=== PATIENT | female | born 1935 | race Caucasian/White ===

== ENCOUNTER → 2019-12-23 10:28 | Outpatient (BNVA) | payer MEDICARE, OTHER, SELFPAY | PROVIDERS: PCP Nurse Practitioner; Referring Provider Nurse Practitioner; Visit Provider Nurse Practitioner | DX: F03.90 Unspecified dementia, unspecified severity, without behavioral disturbance, psychotic disturbance, mood disturbance, and anxiety (principal); R41.3 Other amnesia; R42 Dizziness and giddiness | CPT/HCPCS: 96116; 99204 ==

== ENCOUNTER 2020-01-18 12:07 | Outpatient (CLI) | payer MEDICARE, OTHER, SELFPAY ==
--- NOTE | 2020-01-18 12:45 | USCV_ITS ---
Fatuma Phan Age: 84 Gender: F : 1935 Exam Date: 01/18/2020 12:43 Ordering Phys: Hoa Crane MD ([email or web address]) Technologist: Shivani Fan Exam Location: [facility] [place] Indication: Atrial flutter BP: / HR: 54 Rhythm: Sinus Technical Quality: Adequate MEASUREMENTS (Male / Female) Normal Values 2D ECHO LV Diastolic Diameter PLAX 5.1 cm 4.2 - 5.9 / 3.9 - 5.3 cm LV Systolic Diameter PLAX 3.2 cm IVS Diastolic Thickness 1.1 cm 0.6 - 1.0 / 0.6 - 0.9 cm IVS Systolic Thickness 1.7 cm LVPW Diastolic Thickness 0.9 cm 0.6 - 1.0 / 0.6 - 0.9 cm LVPW Systolic Thickness 1.5 cm LVOT Diameter 2.0 cm LV Ejection Fraction 2D Teich 66.2 % LV Ejection Fraction MOD 2C 76.5 % LV Ejection Fraction 2C AL 77.4 % LA Diameter 3.7 cm LA Width 3.3 cm LA Height 3.9 cm RA Width 2.6 cm RA Height 4.0 cm M-MODE LV Diastolic Diameter MM 5.3 cm 4.2 - 5.9 / 3.9 - 5.3 cm LV Systolic Diameter MM 3.9 cm LV Ejection Fraction MM Teich 50.8 % IVS Diastolic Thickness MM 0.9 cm 0.6 - 1.0 / 0.6 - 0.9 cm IVS Systolic Thickness MM 1.1 cm LVPW Diastolic Thickness MM 1.1 cm 0.6 - 1.0 / 0.6 - 0.9 cm LVPW Systolic Thickness MM 1.8 cm Aortic Annulus Diameter 2.7 cm LA Ao Ratio MM 1.4 MV E Point Septal Separation 1.2 cm DOPPLER AV Peak Velocity 217.0 cm/s LVOT Peak Velocity 148.0 cm/s AV Area Cont Eq vti 2.3 cm squared AV Area Cont Eq pk 2.2 cm squared MV Peak Velocity 147.0 cm/s MV Area PHT 2.5 cm squared Mitral E to A Ratio 0.6 MV E' Velocity 4.0 cm/s Mitral E to MV E' Ratio 18.2 Mitral E to LV E' Lateral Ratio 24.0 Mitral E to LV E' Septal Ratio 14.9 TR Peak Velocity 171.0 cm/s TR Peak Gradient 11.7 mmHg Right Atrial Pressure 3.0 mmHg Pulmonary Artery Systolic Pressu 14.7 mmHg PV Peak Velocity 92.0 cm/s RV Acceleration Time 0.1 s FINDINGS Left Ventricle Normal left ventricular size, systolic function and wall thickness, with no regional wall motion abnormalities. Left ventricular ejection fraction is estimated at 70 %. Grade I diastolic dysfunction (abnormal relaxation filling pattern), normal to mildly elevated filling pressures. Right Ventricle Normal right ventricular size and systolic function. Right ventricular systolic pressure 14.7 mmHg. Right Atrium Normal right atrial size. Right atrial pressure estimated at 3 mmHg. Left Atrium Mildly increased left atrial size. Mitral Valve Moderate mitral annular calcification. No mitral valve stenosis. Mild mitral valve regurgitation. Aortic Valve Mildly thickened trileaflet aortic valve. No aortic valve stenosis. No aortic valve regurgitation. Tricuspid Valve Structurally normal tricuspid valve. Trace tricuspid valve regurgitation. Pulmonic Valve Structurally normal pulmonic valve. No pulmonary valve stenosis. Pericardium No pericardial effusion. Aorta Normal size aortic root and proximal ascending aorta. CONCLUSIONS 1. Normal left ventricular size, systolic function and wall thickness, with no regional wall motion abnormalities. Left ventricular ejection fraction is estimated at 70 %. Grade I diastolic dysfunction (abnormal relaxation filling pattern), normal to mildly elevated filling pressures. 2. Normal right ventricular size and systolic function. 3. Mildly increased left atrial size. 4. Mild mitral valve regurgitation. 5. No prior similar studies to compare. Hoa Crane MD (Electronically Signed) Final Date: 19 January 2020 15:28 S
== END 2020-01-18 12:08 | disposition home or self-care (01) ==
LOC: US 12:08
PROVIDERS: PCP Physician Assistant Medical; Visit Provider Internal Medicine Cardiovascular Disease
DX: I48.92 Unspecified atrial flutter (principal); I51.81 Takotsubo syndrome; I51.7 Cardiomegaly; I34.0 Nonrheumatic mitral (valve) insufficiency
CPT/HCPCS: 93306

== ENCOUNTER 2022-10-18 16:51 | Emergency (ER) | payer MEDICARE, OTHER, SELFPAY ==
[2022-10-18 16:57] VITALS: BP 205/76; PULSE 58; RESP 16; TEMP 36.2; O2SAT 96; BMI 22.4
--- NOTE | 2022-10-18 17:18 | XRR_ITS ---
PROCEDURE INFORMATION: Exam: XR Chest Exam date and time: 10/18/2022 5:32 PM Age: 87 years old Clinical indication: Pain; Other: Hallucinations TECHNIQUE: Imaging protocol: Radiologic exam of the chest. Views: 1 view. COMPARISON: No relevant prior studies available. FINDINGS: Lungs: Unremarkable. No consolidation. Pleural spaces: Unremarkable. No pleural effusion. No pneumothorax. Heart/Mediastinum: Borderline cardiomegaly. Bones/joints: Moderate dextroscoliosis of the thoracic spine. Visualized osseous structures are intact. XR/XR chest 1V portable [id number] IMPRESSION: No acute findings.
--- NOTE | 2022-10-18 17:20 | ED.C_ITS ---
Documented by User: Ham Love DO 10/18/22 17:51 HPI - Psych General: Chief Complaint: Psychiatric Symptoms Stated Complaint: 96 hour hold Time Seen by Provider: 10/18/22 17:13 History of Present Illness: Patient presents to the E D for 96-hour hold. Patient is seeing things hearing things says she needs to go get a gun and start killing things. Patient is alert and oriented to self only patient is speaking of her head saying that people want her to go to long-term so they can do her dirty work. MD complaint: other (Visual auditory hallucinations) Onset (ago): unknown Duration: constant Relieving factors: none Exacerbating factors: none Associated psychiatric symptoms: homicidal ideation, auditory hallucinations and visual hallucinations Associated symptoms: Reports auditory hallucinations, visual hallucinations and homicidal ideation Treatments prior to arrival: none Review of Systems General: Reports: 10 or more systems reviewed and unremarkable except in HPI and below Const: Denies: fever(s) or chills Eyes: Denies: change in vision or blurry vision ENMT: Denies: throat pain or odynophagia Card: Denies: chest pain, palpitations or irregular heart rhythm Resp: Denies: dyspnea, productive cough or non-productive cough GI: Denies: abdominal pain, nausea, vomiting or diarrhea : Denies: flank pain or difficulty voiding Musc: Denies: neck pain or back pain Skin/Breast: Denies: rash or pruritus Neuro: Denies: headache(s), numbness in extremities or weakness in extremities Psych: Reports: visual hallucinations, auditory hallucinations and homicidal ideation [facility] ED PFSH: Medical History Dementia Dementia GERD (gastroesophageal reflux disease) HTN (hypertension) Hypothyroidism Stroke Family History Other CAD (coronary artery disease) Diabetes Hyperlipidemia Hypertension Stroke Social History Smoking and tobacco status: never smoked Alcohol intake: never Physical Exam Const: COMMON NORMALS: no acute distress, average body habitus, alert and well nourished GENERAL APPEARANCE: cooperative and comfortable ORIENTATION/CONSCIOUSNESS: Yes awake and Yes oriented to person HENMT: COMMON NORMALS: normocephalic, atraumatic, hearing grossly normal bilaterally, external ears normal, Normal external nose present and moist oral mucous membranes HEAD & SCALP: normocephalic and atraumatic NOSE: Normal external nose present EXTERNAL EAR: Yes external ears normal Eye: COMMON NORMALS: Equal, round and reactive pupils present, EOMs intact bilaterally, conjunctivae normal and no scleral icterus CONJUNCTIVA: Yes conjunctivae normal PUPIL: Yes Equal, round and reactive pupils present Neck/C-Spine: COMMON NORMALS: full ROM, no lymphadenopathy, no meningeal signs, no JVD and Thyroid normal THYROID: Thyroid normal Lymph: LYMPHATIC: no lymphadenopathy noted Chest: COMMONS NORMALS: normal inspection of the chest and normal palpation of entire chest wall Resp: COMMON NORMALS: normal respiratory effort, No retractions, No use of accessory muscles and clear to auscultation bilaterally AUSCULTATION: clear to auscultation bilaterally Cardio: COMMON NORMALS: no JVD, regular rate, regular rhythm, S1 normal heart sound present and S2 normal heart sound present RATE: regular rate RHYTHM: regular rhythm HEART SOUNDS: S1 normal heart sound present and S2 normal heart sound present GI: COMMON NORMALS: Normal to inspection, nondistended, normoactive bowel sounds present, Soft to palpation, non-tender, No hepatosplenomegaly present and no masses PALPATION: Yes Soft to palpation and Yes No hepatosplenomegaly present Neuro: SENSORIUM/ORIENTATION: Yes alert and Yes oriented to person MENINGEAL SIGNS: Yes no meningeal signs Psych: COMMON NORMALS: speech normal APPEARANCE: Yes grossly normal ATTITUDE: Yes calm and Yes engaged SPEECH: Yes normal speech THOUGHT PROCESS: confused Course Vital Signs: Vital signs: Vital Signs Temperature 97.2 F L 10/18/22 16:57 Pulse Rate 75 10/19/22 05:17 Respiratory Rate 18 10/19/22 05:17 Blood Pressure 167/83 10/19/22 05:17 Pulse Oximetry 98 10/19/22 05:17 Oxygen Delivery Me thod Room Air 10/19/22 05:17 MDM - Psych Differential Diagnosis Likely acute psychosis; Unlikely chronic schizophrenia, suicidal ideation, bipolar disorder, depression, drug-induced psychotic disorder or acute anxiety Lab Data 10/18/22 17:55 10/18/22 17:55 Radiology Impressions Chest X-Ray 10/18/22 17:18 IMPRESSION: No acute findings. Laboratory Results WBC 7.9 10^3/uL (4.0-10.0) 10/18/22 17:55 RBC 3.68 10^6/uL (4.1-5.3) L 10/18/22 17:55 Hgb 11.5 g/dL (11.5-15.3) 10/18/22 17:55 Hct 34.3 % (37.0-47.0) L 10/18/22 17:55 MCV 93.2 fl (81-99) 10/18/22 17:55 MCH 31.3 pg (28.0-34.0) 10/18/22 17:55 MCHC 33.5 g/dL (30.0-36.0) 10/18/22 17:55 RDW 13.5 % (12.1-15.1) 10/18/22 17:55 Plt Count 225 10^3/cmm (130-400) 10/18/22 17:55 MPV 10.6 fL (7.4-10.4) H 10/18/22 17:55 Neut % (Auto) 55.8 % 10/18/22 17:55 Lymph % (Auto) 32.4 % 10/18/22 17:55 [place] % (Auto) 9.3 % 10/18/22 17:55 Eos % (Auto) 1.7 % 10/18/22 17:55 Baso % (Auto) 0.5 % 10/18/22 17:55 Neut # (Auto) 4.39 10^3/uL (1.8-7.7) 10/18/22 17:55 Lymph # (Auto) 2.6 10^3/uL (0.8-4.8) 10/18/22 17:55 [place] # (Auto) 0.7 10^3/uL (0.2-0.9) 10/18/22 17:55 Eos # (Auto) 0.1 10^3/uL (0.0-0.8) 10/18/22 17:55 Baso # (Auto) 0.0 10^3/uL (0.0-0.1) 10/18/22 17:55 Nucleated RBC % (auto) 0 % 10/18/22 17: Nucleated RBCs # 0.0 /100WBC 10/18/22 17:55 PT 15.20 SECONDS (12.1-14.9) H 10/18/22 17:55 INR 1.16 (0.8-1.2) 10/18/22 17:55 Sodium 139 mmol/L (136-145) 10/18/22 17:55 Potassium 3.4 mmol/L (3.5-5.1) L 10/18/22 17:55 Chloride 103 mmol/L (98-107) 10/18/22 17:55 Carbon Dioxide 25 mmol/L (22-29) 10/18/22 17:55 Anion Gap 14.4 (5-19) 10/18/22 17:55 BUN 20 mg/dL (8-23) 10/18/22 17:55 Creatinine 0.6 mg/dL (0.5-0.9) 10/18/22 17:55 GFR Calculation Not Reportable 10/18/22 17:55 Glucose 86 mg/dL (65-115) 10/18/22 17:55 Calculated Osmolality 290 mOsm/kg (285-295) 10/18/22 17:55 Calcium 8.1 mg/dL (8.5-10.5) L 10/18/22 17:55 Total Bilirubin 0.2 mg/dL (0.15-1.2) 10/18/22 17:55 AST 20 U/L (0-32) 10/18/22 17:55 ALT 10 U/L (0-33) 10/18/22 17:55 Alkaline Phosphatase 64 U/L (35-105) 10/18/22 17:55 Total Protein 5.8 g/dL (6.6-8.7) L 10/18/22 17:55 Albumin 3.8 g/dL (3.5-5.2) 10/18/22 17:55 Globulin 2.0 g/dL (1.3-4.6) 10/18/22 17:55 Vitamin B12 716 pg/mL (232-1245) 10/18/22 17:55 TSH 1.69 uIU/mL (0.27-4.20) 10/18/22 17:55 TSH 1.72 uIU/mL (0.27-4.20) 10/18/22 17:55 Free T4 1.51 ng/dL (0.82-1.77) 10/18/22 17:55 Free T3 2.4 PG/ML (2.0-4.4) 10/18/22 17:55 Urine Color Yellow (Yellow) 10/18/22 23:55 Urine Appearance Sl hazy (CLEAR) A 10/18/22 23:55 Urine pH 7 (5-7) 10/18/22 23:55 Ur Specific [place] 1.010 (1.005-1.030) 10/18/22 23:55 Urine Protein Neg (Negative) 10/18/22 23:55 Urine Glucose (UA) Norm (Normal) 10/18/22 23:55 Urine Ketones Negative (Negative) 10/18/22 23:55 Urine Blood Neg (Negative) 10/18/22 23:55 Urine Nitrate Negative (Negative) 10/18/22 23:55 Urine Bilirubin Neg (Negative) 10/18/22 23:55 Urine Urobilinogen Norm mg/dL (Negative) 10/18/22 23:55 Ur Leukocyte Esterase Negative (Negative) 10/18/22 23:55 Salicylates < 0.3 mg/dL (3-10) L 10/18/22 17:55 Urine Opiates Screen Negative ng/mL (Negative) 10/18/22 23:55 Acetaminophen < 5.0 ug/mL (10-30) L 10/18/22 17:55 Ur Barbiturates Screen Negative ng/mL (Negative) 10/18/22 23:55 Ur Phencyclidine Scrn Negative ng/mL (Negative) 10/18/22 23:55 Ur Amphetamines Screen Negative ng/mL (Negative) 10/18/22 23:55 U Benzodiazepines Scrn Negative ng/mL (Negative) 10/18/22 23:55 Urine Cocaine Screen Negative ng/mL (Negative) 10/18/22 23:55 U Marijuana (THC) Screen Negative ng/mL (Negative) 10/18/22 23:55 Ethyl Alcohol < 10 mg/dL (0-10) 10/18/22 17:55 SARS-CoV-2 Ag (Rapid) negative (Negative) 10/18/22 20:40 EKG Data EKG 1: I personally reviewed and interpreted this EKG as follows: EKG interpretation date: 10/18/22 EKG interpretation time: 17:48 Prior EKG tracings: not available for review Interpretation: EKG showed ventricular rate 65 bpm, AL interval 175, QRS duration 93, QTc of 472, moderate ST depression, prolonged QT interval, sinus rhythm with frequent supraventricular premature complexes. 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 [employer] Documented by User: Erik Maxwell DO 10/19/22 06:09 HPI - Psych General: Chief Complaint: Psychiatric Symptoms Stated Complaint: 96 hour hold Time Seen by Provider: 10/18/22 17:13 [facility] ED PFSH: Medical History Dementia Dementia GERD (gastroesophageal reflux disease) HTN (hypertension) Hypothyroidism Stroke Family History Other CAD (coronary artery disease) Diabetes Hyperlipidemia Hypertension Stroke Social History Smoking and tobacco status: never smoked Alcohol intake: never Course Vital Signs: Vital signs: Vital Signs Temperature 97.2 F L 10/18/22 16:57 Pulse Rate 75 10/19/22 05:17 Respiratory Rate 18 10/19/22 05:17 Blood Pressure 167/83 10/19/22 05:17 Pulse Oximetry 98 10/19/22 05:17 Oxygen Delivery Me thod Room Air 10/19/22 05:17 MDM - Psych Medical Decision Making 87-year-old female patient received in checkout from the previous physician at shift change. This lady is exhibiting paranoia with delusions and hallucinations. This seems to be acute. Medically she has been quite stable. She has not required medication for sedation or agitation. Her CBC is essentially normal. BMP and liver enzymes are not remarkable. Urinalysis is negative as is drug screen and alcohol screen. She is COVID-negative. She does have a history of dementia. With psychotic symptoms, she may require psychiatric evaluation. We have called out to multiple geriatric psychiatry facilities. Our nursing staff is speaking with [facility] in [place] currently regarding this patient. She remains medically stable. Lab Data 10/18/22 17:55 10/18/22 17:55 Radiology Impressions Chest X-Ray 10/18/22 17:18 IMPRESSION: No acute findings. Laboratory Results WBC 7.9 10^3/uL (4.0-10.0) 10/18/22 17:55 RBC 3.68 10^6/uL (4.1-5.3) L 10/18/22 17:55 Hgb 11.5 g/dL (11.5-15.3) 10/18/22 17:55 Hct 34.3 % (37.0-47.0) L 10/18/22 17:55 MCV 93.2 fl (81-99) 10/18/22 17:55 MCH 31.3 pg (28.0-34.0) 10/18/22 17:55 MCHC 33.5 g/dL (30.0-36.0) 10/18/22 17:55 RDW 13.5 % (12.1-15.1) 10/18/22 17:55 Plt Count 225 10^3/cmm (130-400) 10/18/22 17:55 MPV 10.6 fL (7.4-10.4) H 10/18/22 17:55 Neut % (Auto) 55.8 % 10/18/22 17:55 Lymph % (Auto) 32.4 % 10/18/22 17:55 [place] % (Auto) 9.3 % 10/18/22 17:55 Eos % (Auto) 1.7 % 10/18/22 17:55 Baso % (Auto) 0.5 % 10/18/22 17:55 Neut # (Auto) 4.39 10^3/uL (1.8-7.7) 10/18/22 17:55 Lymph # (Auto) 2.6 10^3/uL (0.8-4.8) 10/18/22 17:55 [place] # (Auto) 0.7 10^3/uL (0.2-0.9) 10/18/22 17:55 Eos # (Auto) 0.1 10^3/uL (0.0-0.8) 10/18/22 17:55 Baso # (Auto) 0.0 10^3/uL (0.0-0.1) 10/18/22 17:55 Nucleated RBC % (auto) 0 % 10/18/22 17:55 Nucleated RBCs # 0.0 /100WBC 10/18/22 17:55 PT 15.20 SECONDS (12.1-14.9) H 10/18/22 17:55 INR 1.16 (0.8-1.2) 10/18/22 17:55 Sodium 139 mmol/L (136-145) 10/18/22 17:55 Potassium 3.4 mmol/L (3.5-5.1) L 10/18/22 17:55 Chloride 103 mmol/L (98-107) 10/18/22 17:55 Carbon Dioxide 25 mmol/L (22-29) 10/18/22 17:55 Anion Gap 14.4 (5-19) 10/18/22 17:55 BUN 20 mg/dL (8-23) 10/18/22 17:55 Creatinine 0.6 mg/dL (0.5-0.9) 10/18/22 17:55 GFR Calculation Not Reportable 10/18/22 17:55 Glucose 86 mg/dL (65-115) 10/18/22 17:55 Calculated Osmolality 290 mOsm/kg (285-295) 10/18/22 17:55 Calcium 8.1 mg/dL (8.5-10.5) L 10/18/22 17:55 Total Bilirubin 0.2 mg/dL (0.15-1.2) 10/18/22 17:55 AST 20 U/L (0-32) 10/18/22 17:55 ALT 10 U/L (0-33) 10/18/22 17:55 Alkaline Phosphatase 64 U/L (35-105) 10/18/22 17:55 Total Protein 5.8 g/dL (6.6-8.7) L 10/18/22 17:55 Albumin 3.8 g/dL (3.5-5.2) 10/18/22 17:55 Globulin 2.0 g/dL (1.3-4.6) 10/18/22 17:55 Vitamin B12 716 pg/mL (232-1245) 10/18/22 17:55 TSH 1.69 uIU/mL (0.27-4.20) 10/18/22 17:55 TSH 1.72 uIU/mL (0.27-4.20) 10/18/22 17:55 Free T4 1.51 ng/dL (0.82-1.77) 10/18/22 17:55 Free T3 2.4 PG/ML (2.0-4.4) 10/18/22 17:55 Urine Color Yellow (Yellow) 10/18/22 23:55 Urine Appearance Sl hazy (CLEAR) A 10/18/22 23:55 Urine pH 7 (5-7) 10/18/22 23:55 Ur Specific [place] 1.010 (1.005-1.030) 10/18/22 23:55 Urine Protein Neg (Negative) 10/18/22 23:55 Urine Glucose (UA) Norm (Normal) 10/18/22 23:55 Urine Ketones Negative (Negative) 10/18/22 23:55 Urine Blood Neg (Negative) 10/18/22 23:55 Urine Nitrate Negative (Negative) 10/18/22 23:55 Urine Bilirubin Neg (Negative) 10/18/22 23:55 Urine Urobilinogen Norm mg/dL (Negative) 10/18/22 23:55 Ur Leukocyte Esterase Negative (Negative) 10/18/22 23:55 Salicylates < 0.3 mg/dL (3-10) L 10/18/22 17:55 Urine Opiates Screen Negative ng/mL (Negative) 10/18/22 23:55 Acetaminophen < 5.0 ug/mL (10-30) L 10/18/22 17:55 Ur Barbiturates Screen Negative ng/mL (Negative) 10/18/22 23:55 Ur Phencyclidine Scrn Negative ng/mL (Negative) 10/18/22 23:55 Ur Amphetamines Screen Negative ng/mL (Negative) 10/18/22 23:55 U Benzodiazepines Scrn Negative ng/mL (Negative) 10/18/22 23:55 Urine Cocaine Screen Negative ng/mL (Negative) 10/18/22 23:55 U Marijuana (THC) Screen Negative ng/mL (Negative) 10/18/22 23:55 Ethyl Alcohol < 10 mg/dL (0-10) 10/18/22 17:55 SARS-CoV-2 Ag (Rapid) negative (Negative) 10/18/22 20:40 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
--- NOTE | 2022-10-18 17:48 | ECG_ITS ---
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 Measurements Intervals [place] Rate: 65 P: 27 DE: 175 QRS: 37 QRSD: 93 T: 35 QT: 460 QTc: 482 Interpretive Statements SINUS RHYTHM WITH FREQUENT SUPRAVENTRICULAR PREMATURE COMPLEXES MODERATE ST DEPRESSION [0.05+ mV ST DEPRESSION] PROLONGED QT INTERVAL No previous ECG available for comparison Electronically Signed On 10-19-2022 10:30:03 CDT by Ruben Cali M.D. [id number]
[2022-10-18 18:13] LABS: Basophils % 0.5 %; Eosinophils # 0.1 10^3/uL (0.0-0.8); Eosinophils % 1.7 %; Hematocrit 34.3 % (37.0-47.0); Hemoglobin 11.5 g/dL (11.5-15.3); Lymphocytes # 2.6 10^3/uL (0.8-4.8); Lymphocytes % 32.4 %; Mean Corpuscular HGB Conc 33.5 g/dL (30.0-36.0); Mean Corpuscular Hemoglobin 31.3 pg (28.0-34.0); Mean Corpuscular Volume 93.2 fl (81-99); Mean Platelet Volume 10.6 fL (7.4-10.4); Monocytes # 0.7 10^3/uL (0.2-0.9); Monocytes % 9.3 %; Neutrophils # 4.39 10^3/uL (1.8-7.7); Neutrophils % 55.8 %; Nucleated Red Blood Cells % 0 %; Platelet Count 225 10^3/cmm (130-400); Red Blood Count 3.68 10^6/uL (4.1-5.3); Red Cell Distribution Width 13.5 % (12.1-15.1); White Blood Count 7.9 10^3/uL (4.0-10.0)
[2022-10-18 18:27] LABS: INR 1.16 (0.8-1.2)
[2022-10-18 18:41] LABS: Alanine Aminotransferase 10 U/L (0-33); Albumin Level 3.8 g/dL (3.5-5.2); Alkaline Phosphatase 64 U/L (35-105); Anion Gap 14.4 (5-19); Aspartate Amino Transferase 20 U/L (0-32); Blood Urea Nitrogen 20 mg/dL (8-23); Calcium 8.1 mg/dL (8.5-10.5); Carbon Dioxide 25 mmol/L (22-29); Chloride 103 mmol/L (98-107); Glucose 86 mg/dL (65-115); Osmolality Calculated 290 mOsm/kg (285-295); Potassium 3.4 mmol/L (3.5-5.1); Sodium 139 mmol/L (136-145); Thyroid Stimulating Hormone 1.69 uIU/mL (0.27-4.20); Total Bilirubin 0.2 mg/dL (0.15-1.2); Total Protein 5.8 g/dL (6.6-8.7)
[2022-10-18 19:12] LABS: Acetaminophen < 5.0 ug/mL (10-30); Salicylate < 0.3 mg/dL (3-10)
[2022-10-18 19:58] VITALS: BP 172/63; RESP 16; O2SAT 97
[2022-10-18 20:51] LABS: Thyroid Stimulating Hormone 1.72 uIU/mL (0.27-4.20); Vitamin B12 716 pg/mL (232-1245)
[2022-10-18 21:24] LABS: SARS Covid-2 Antigen negative (Negative)
[2022-10-18 21:25] LABS: T3 Free 2.4 PG/ML (2.0-4.4)
[2022-10-18 21:44] LABS: Free T4 Free Thyroxine 1.51 ng/dL (0.82-1.77)
[2022-10-18 22:45] LABS: Alcohol Level < 10 mg/dL (0-10)
--- NOTE | 2022-10-18 22:59 | PC.NURSE ---
Pt ambulatory to bathroom, attempted to obtain urine sample but pt missed the hat. Denies other needs or complaints at this time
[2022-10-19 00:03] VITALS: BP 168/82; PULSE 61; RESP 16; O2SAT 97
[2022-10-19 00:21] LABS: Add Urine Microscopic? NO; Charge for UA Resulting for Rev
[2022-10-19 00:31] LABS: Bilirubin Urine Neg (Negative); Blood Urine Neg (Negative); Glucose Urine UA Norm (Normal); Ketones Urine Negative (Negative); Leukocyte Esterase Urine Negative (Negative); Nitrate Urine Negative (Negative); Protein Urine Neg (Negative); Urine Appearance SL Hazy (CLEAR); Urine Color Yellow (Yellow); Urobilinogen Urine Norm (Negative); pH Urine 7 (5-7)
[2022-10-19 00:33] LABS: Amphetamines Screen Urine Negative (Negative); Barbiturates Screen Urine Negative (Negative); Benzodiazepines Screen Urine Negative (Negative); Cocaine Screen Urine Negative (Negative); Opiate Screen Urine Negative (Negative); PCP Screen Urine Negative (Negative); THC Screen Urine Negative (Negative)
[2022-10-19 05:17] VITALS: BP 167/83; PULSE 75; RESP 18; O2SAT 98
[2022-10-21 17:30] LABS: RPR w(Moniotor) w/REFL Titer NON-REACTIVE (NON-REACTIVE)
--- NOTE | 2022-10-23 15:07 | DCPLANNER ---
TCM called patient due to no primary care physician - patient stated that they see Dr. Ridge Kaur at [facility].
== END 2022-10-19 08:40 ==
PROVIDERS: Emergency Medicine; Emergency Provider Emergency Medicine; PCP Family Medicine
DX: F23 Brief psychotic disorder (principal); Z20.822 Contact with and (suspected) exposure to COVID-19; F03.90 Unspecified dementia, unspecified severity, without behavioral disturbance, psychotic disturbance, mood disturbance, and anxiety; I10 Essential (primary) hypertension; Z86.73 Personal history of transient ischemic attack (TIA), and cerebral infarction without residual deficits
CPT/HCPCS: 71045; 80053; 80306; 80307; 81003; 82607; 84439; 84443; 84481; 85025; 85610; 86592; 87426; 93005; 99285

== ENCOUNTER 2024-06-14 14:12 | Outpatient (CLI) | payer MEDICARE, MEDICAID, SELFPAY ==
--- NOTE | 2024-06-14 14:14 | XR_ITS ---
WS: [id number] SCREENING DEXA SCAN [place] CLINICAL INFORMATION: OSTEOPOROSIS COMPARISON: None. FINDINGS: S-shaped lumbar scoliosis The L1-L4 bone mineral density measures 1.348 g/cm2. This corresponds to a T score score of 1.4 and Z score of 3.4. Left forearm bone mineral density measures 0.79. This corresponds to a T score of -0.9 and Z score of 2.6. XR/XR DEXA axial skeleton* [id number] IMPRESSION: Normal bone mineralization lumbar spine and LEFT forearm.
== END 2024-06-14 14:13 | disposition home or self-care (01) ==
LOC: RAD 14:13
PROVIDERS: PCP Family Medicine; Visit Provider Nurse Practitioner
DX: Z13.820 Encounter for screening for osteoporosis (principal)
CPT/HCPCS: 77080